=== PATIENT | female | born 1940 | race Caucasian/White ===

== ENCOUNTER 2019-02-04 21:00 | Emergency (ER) | payer MEDICARE ==
[~2019-02-04] VITALS: Ht 167.6 cm; Wt 79.8 kg
--- OUTSIDE RECORDS SUMMARY | 2019-02-04 21:04 | XMS REPORT | Clinical Summary ---
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 Active traZODone (DESYREL) 50 MG Take 50 mg by 0 tablet mouth nightly. Active naproxen Take 220 mg 0 (ALEVE,ANAPROX,MIDOL) 220 by mouth 2 MG tablet (two) times daily with breakfast and dinner. Active Problems Problem Noted Date SVT (supraventricular tachycardia) 07/20/2016 Social History Date Tobacco Use Types Packs/Day Years Used Never Smoker Alcohol Use Drinks/Week oz/Week Comments Yes 3-4 Glasses 1.8 - 2.4 PER DAY of wine Sex Assigned at Date Recorded Not on file Industry Job Start Date Occupation Not on file Not on file Not on file Travel End Travel History Travel Start No recent travel history available. Last Filed Vital Signs Not on file Plan of Treatment Not on file Results Not on fileafter 02/03/2018 Insurance Payer Benefit Subscriber ID Type Phone Address Plan / Group [facility] xxxxxxxxxxx MEDICARE ADV Advance Directives For more information, please contact: [facility] [address] [place] [address] Date Inactivated Comments Code Status Date Activated 07/23/2016 6:42 PM Full Code 07/20/2016 11:33 PM This code status was determined by: Patient
--- OUTSIDE RECORDS SUMMARY | 2019-02-04 21:04 | XMS REPORT ---
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 Allergies, Adverse Reactions, Alerts This patient has no known allergies or adverse reactions. Medications This patient has no known medications. Results Test Description Test Time Test Comments Text Results Atomic Results Result Comments HEPATITIS C PCR, QUANTITATIVE 2016-07-23 20:44:00 HCV RESULT COMPONENT (BEAKER) (test pgjb=5194) HCV RNA not detected HCV RNA not detected This test uses a Real-Time Polymerase Chain Reaction (RT-PCR) methodology and wa s performed using NEENA Ampliprep/NEENA TaqMan HCV test kit version 2.0 ([employer]).Reportable range for this assay is 15 - 100,000,000 IU per mL (1.18 - 8.00 Log IU/mL).This test uses a Real-Time Polymerase Chain Reac tion (RT-PCR) methodology and was performed using NEENA Ampliprep/NEENA TaqMan HCV test kit version 2.0 ([employer]).Reportable range for t his assay is 15 - 100,000,000 IU per mL (1.18 - 8.00 Log IU/mL).HEMOGLOBIN A1C 2016-07-23 07:52:00* Test Item Value Reference Range Comments HEMOGLOBIN A1C (BEAKER) (test gncf=896) 5.2 % 4.3-6.1 BASIC METABOLIC [id number] 05:56:00* Test Item Value Reference Range Comments SODIUM (BEAKER) (test ugpw=695) 139 meq/L 136-145 POTASSIUM (BEAKER) (test yzhq=101) 3.6 meq/L 3.5-5.1 CHLORIDE (BEAKER) (test hcor=142) 108 meq/L 98-107 CO2 (BEAKER) (test vsrx=122) 24 meq/L 22-29 BLOOD UREA NITROGEN (BEAKER) (test cvwm=198) 12 mg/dL 7-21 CREATININE (BEAKER) (test lusf=896) 0.78 mg/dL 0.57-1.25 GLUCOSE RANDOM (BEAKER) (test ycpe=129) 83 mg/dL 70-105 CALCIUM (BEAKER) (test azur=434) 9.4 mg/dL 8.4-10.2 EGFR (BEAKER) (test udhb=5789) mL/min/1.73 sq m INSUFFICIENT CLINICAL DATA TO CALCULATE ESTIMATED GFR. CBC W/PLT COUNT & AUTO [id number] 05:25:00* Test Item Value Reference Range Comments WHITE BLOOD CELL COUNT (BEAKER) (test gavk=233) 3.7 K/ L 4.0-10.0 RED BLOOD CELL COUNT (BEAKER) (test fnfh=248) 3.92 M/ L 4.00-5.00 HEMOGLOBIN (BEAKER) (test ztfg=009) 13.1 GM/DL 12.0-15.0 HEMATOCRIT (BEAKER) (test qtxu=554) 38.2 % 36.0-45.0 MEAN CORPUSCULAR VOLUME (BEAKER) (test tpdy=742) 97.6 fL 82.0-99.0 MEAN CORPUSCULAR HEMOGLOBIN (BEAKER) (test qdot=337) 33.5 pg 27.0-33.0 MEAN CORPUSCULAR HEMOGLOBIN CONC (BEAKER) (test tmqb=121) 34.3 GM/DL 32.0-36.0 RED CELL DISTRIBUTION WIDTH (BEAKER) (test wgik=258) 12.5 % 10.3-14.2 PLATELET COUNT (BEAKER) (test kigq=211) 107 K/CU MM 150-430 MEAN PLATELET VOLUME (BEAKER) (test gpmx=849) 7.9 fL 6.5-10.5 NUCLEATED RED BLOOD CELLS (BEAKER) (test bsih=820) 0 /100 WBC 0-0 NEUTROPHILS RELATIVE PERCENT (BEAKER) (test gucp=341) 54 % LYMPHOCYTES RELATIVE PERCENT (BEAKER) (test vugh=751) 29 % MONOCYTES RELATIVE PERCENT (BEAKER) (test akpg=461) 10 % EOSINOPHILS RELATIVE PERCENT (BEAKER) (test ujdu=441) 5 % BASOPHILS RELATIVE PERCENT (BEAKER) (test vsya=319) 2 % NEUTROPHILS ABSOLUTE COUNT (BEAKER) (test giih=696) 1.97 K/ L 1.80-8.00 LYMPHOCYTES ABSOLUTE COUNT (BEAKER) (test lsvz=115) 1.08 K/ L 1.48-4.50 MONOCYTES ABSOLUTE COUNT (BEAKER) (test ygqz=790) 0.35 K/ L 0.00-1.30 EOSINOPHILS ABSOLUTE COUNT (BEAKER) (test qefg=918) 0.18 K/ L 0.00-0.50 BASOPHILS ABSOLUTE COUNT (BEAKER) (test cwci=310) 0.09 K/ L 0.00-0.20 0.00HEMOGLOBIN [id number] 11:39:00* Test Item Value Reference Range Comments HEMOGLOBIN A1C (BEAKER) (test nvin=988) 5.5 % 4.3-6.1 CBC W/PLT COUNT & AUTO [id number] 10:52:00* Test Item Value Reference Range Comments WHITE BLOOD CELL COUNT (BEAKER) (test jtem=362) 3.8 K/ L 4.0-10.0 RED BLOOD CELL COUNT (BEAKER) (test bsyp=804) 3.64 M/ L 4.00-5.00 HEMOGLOBIN (BEAKER) (test uppl=142) 12.3 GM/DL 12.0-15.0 HEMATOCRIT (BEAKER) (test yssl=689) 36.1 % 36.0-45.0 MEAN CORPUSCULAR VOLUME (BEAKER) (test rtjx=536) 99.2 fL 82.0-99.0 MEAN CORPUSCULAR HEMOGLOBIN (BEAKER) (test hhau=713) 33.9 pg 27.0-33.0 MEAN CORPUSCULAR HEMOGLOBIN CONC (BEAKER) (test cjiq=833) 34.2 GM/DL 32.0-36.0 RED CELL DISTRIBUTION WIDTH (BEAKER) (test orry=620) 12.9 % 10.3-14.2 PLATELET COUNT (BEAKER) (test mleh=425) 127 K/CU MM 150-430 MEAN PLATELET VOLUME (BEAKER) (test sfep=331) 7.9 fL 6.5-10.5 NUCLEATED RED BLOOD CELLS (BEAKER) (test oukm=940) 0 /100 WBC 0-0 NEUTROPHILS RELATIVE PERCENT (BEAKER) (test nlyl=070) 55 % LYMPHOCYTES RELATIVE PERCENT (BEAKER) (test idht=269) 30 % MONOCYTES RELATIVE PERCENT (BEAKER) (test effh=925) 8 % EOSINOPHILS RELATIVE PERCENT (BEAKER) (test thjj=088) 7 % BASOPHILS RELATIVE PERCENT (BEAKER) (test hiaq=098) 0 % NEUTROPHILS ABSOLUTE COUNT (BEAKER) (test ippk=394) 2.07 K/ L 1.80-8.00 LYMPHOCYTES ABSOLUTE COUNT (BEAKER) (test nzil=838) 1.15 K/ L 1.48-4.50 MONOCYTES ABSOLUTE COUNT (BEAKER) (test qvxx=939) 0.29 K/ L 0.00-1.30 EOSINOPHILS ABSOLUTE COUNT (BEAKER) (test evjb=568) 0.26 K/ L 0.00-0.50 BASOPHILS ABSOLUTE COUNT (BEAKER) (test gbrg=798) 0.02 K/ L 0.00-0.20 0.001.100.000.000.000.000.000.000.500.000.000.000.000.00(MANUAL DIFFERENTIAL) 2016-07-22 10:52:00* Test Item Value Reference Range Comments TOTAL COUNTED (BEAKER) (test xcoo=6947) WBC MORPHOLOGY (BEAKER) (test nzji=851) Normal PLT MORPHOLOGY (BEAKER) (test cris=472) Normal RBC MORPHOLOGY (BEAKER) (test cmas=690) Normal BASIC METABOLIC [id number] 05:50:00* Test Item Value Reference Range Comments SODIUM (BEAKER) (test mpnq=923) 139 meq/L 136-145 POTASSIUM (BEAKER) (test cwcw=195) 4.2 meq/L 3.5-5.1 Specimen slightly hemolyzed CHLORIDE (BEAKER) (test ubyu=780) 110 meq/L 98-107 CO2 (BEAKER) (test ersm=672) 19 meq/L 22-29 BLOOD UREA NITROGEN (BEAKER) (test ctif=496) 14 mg/dL 7-21 CREATININE (BEAKER) (test ikdu=294) 0.79 mg/dL 0.57-1.25 Specimen slightly hemolyzed GLUCOSE RANDOM (BEAKER) (test itao=377) 90 mg/dL 70-105 CALCIUM (BEAKER) (test wscj=962) 9.1 mg/dL 8.4-10.2 EGFR (BEAKER) (test oeek=7456) mL/min/1.73 sq m INSUFFICIENT CLINICAL DATA TO CALCULATE ESTIMATED GFR. TSH/FREE T4 IF [id number] 19:08:00* Test Item Value Reference Range Comments THYROID STIMULATING HORMONE (BEAKER) (test bvdj=383) 2.55 uIU/mL 0.35-4.94 CBC W/PLT COUNT & AUTO [id number] 14:09:00* Test Item Value Reference Range Comments WHITE BLOOD CELL COUNT (BEAKER) (test rfyt=846) 4.7 K/ L 4.0-10.0 RED BLOOD CELL COUNT (BEAKER) (test xvii=066) 3.50 M/ L 4.00-5.00 HEMOGLOBIN (BEAKER) (test mkpp=398) 12.0 GM/DL 12.0-15.0 HEMATOCRIT (BEAKER) (test jifu=172) 34.3 % 36.0-45.0 MEAN CORPUSCULAR VOLUME (BEAKER) (test ucrn=255) 98.3 fL 82.0-99.0 MEAN CORPUSCULAR HEMOGLOBIN (BEAKER) (test vupg=874) 34.2 pg 27.0-33.0 MEAN CORPUSCULAR HEMOGLOBIN CONC (BEAKER) (test mzeb=295) 34.8 GM/DL 32.0-36.0 RED CELL DISTRIBUTION WIDTH (BEAKER) (test sphc=487) 12.9 % 10.3-14.2 PLATELET COUNT (BEAKER) (test emgp=759) 111 K/CU MM 150-430 MEAN PLATELET VOLUME (BEAKER) (test xibe=067) 7.5 fL 6.5-10.5 NUCLEATED RED BLOOD CELLS (BEAKER) (test jkhe=921) 0 /100 WBC 0-0 NEUTROPHILS RELATIVE PERCENT (BEAKER) (test azud=237) 56 % LYMPHOCYTES RELATIVE PERCENT (BEAKER) (test dvim=649) 33 % MONOCYTES RELATIVE PERCENT (BEAKER) (test jjqi=162) 6 % EOSINOPHILS RELATIVE PERCENT (BEAKER) (test fhxf=311) 2 % BASOPHILS RELATIVE PERCENT (BEAKER) (test lwwg=889) 3 % NEUTROPHILS ABSOLUTE COUNT (BEAKER) (test fsnc=316) 2.65 K/ L 1.80-8.00 LYMPHOCYTES ABSOLUTE COUNT (BEAKER) (test rusj=086) 1.55 K/ L 1.48-4.50 MONOCYTES ABSOLUTE COUNT (BEAKER) (test katg=853) 0.26 K/ L 0.00-1.30 EOSINOPHILS ABSOLUTE COUNT (BEAKER) (test yglu=105) 0.11 K/ L 0.00-0.50 BASOPHILS ABSOLUTE COUNT (BEAKER) (test gqei=929) 0.15 K/ L 0.00-0.20 0.00(MANUAL DIFFERENTIAL)2016-07-21 14:09:00* Test Item Value Reference Range Comments TOTAL COUNTED (BEAKER) (test afcq=4532) WBC MORPHOLOGY (BEAKER) (test ijfa=839) Normal PLT MORPHOLOGY (BEAKER) (test zsmp=098) Normal RBC MORPHOLOGY (BEAKER) (test wazc=963) Normal HEMOGLOBIN [id number] 09:25:00* Test Item Value Reference Range Comments HEMOGLOBIN A1C (BEAKER) (test hqal=582) 5.3 % 4.3-6.1 TROPONIN [id number] 07:00:00* Test Item Value Reference Range Comments TROPONIN I (BEAKER) (test jisq=914) 0.30 ng/mL 0.00-0.03 Effective 04/06/2014: Reference Range ChangeNew: 0.00-0.03 Previous 0.00-0.15T roponin I (TnI) levels must be interpreted in the context of the presenting symp toms and the clinical findings. Elevated TnI levels indicate myocardial damage, but are not specific for ischemic heart disease. Elevated TnI levels are seen in patients with other cardiac conditions (including myocarditis and congestive he art failure), and slight TnI elevations occur in patients with other conditions, including sepsis, renal failure, acidosis, acute neurological disease, and pers istent tachyarrhythmia.HEPATITIS C [id number] 06:56:00* Test Item Value Reference Range Comments HEPATITIS C ANTIBODY (BEAKER) (test gawk=754) Reactive Nonreactive PT/[id number] 06:15:00* Test Item Value Reference Range Comments PROTIME (BEAKER) (test kwpu=160) 14.8 seconds 11.7-14.7 INR (BEAKER) (test zhtx=935) 1.2 <=5.9 PARTIAL THROMBOPLASTIN TIME (BEAKER) (test pgwf=042) 39.1 seconds 22.5-36.0 RECOMMENDED COUMADIN/WARFARIN INR THERAPY RANGESSTANDARD DOSE: 2.0 - 3.0 Inclu brien: PROPHYLAXIS for venous thrombosis, systemic embolization; TREATMENT for syed ous thrombosis and/or pulmonary embolus.HIGH RISK: Target INR is 2.5-3.5 for pat ients with mechanical heart valves.BASIC METABOLIC [id number] 06:01:00* Test Item Value Reference Range Comments SODIUM (BEAKER) (test deum=364) 138 meq/L 136-145 POTASSIUM (BEAKER) (test qwnv=353) 3.9 meq/L 3.5-5.1 CHLORIDE (BEAKER) (test nmku=398) 108 meq/L 98-107 CO2 (BEAKER) (test afjj=140) 22 meq/L 22-29 BLOOD UREA NITROGEN (BEAKER) (test dghn=297) 15 mg/dL 7-21 CREATININE (BEAKER) (test mrpu=570) 0.79 mg/dL 0.57-1.25 GLUCOSE RANDOM (BEAKER) (test yqgo=787) 95 mg/dL 70-105 CALCIUM (BEAKER) (test hdlp=238) 9.3 mg/dL 8.4-10.2 EGFR (BEAKER) (test ssbw=7028) mL/min/1.73 sq m INSUFFICIENT CLINICAL DATA TO CALCULATE ESTIMATED GFR. LIPID [id number] 05:58:00* Test Item Value Reference Range Comments TRIGLYCERIDES (BEAKER) (test ymtf=817) 87 mg/dL CHOLESTEROL (BEAKER) (test pfax=671) 178 mg/dL HDL CHOLESTEROL (BEAKER) (test symh=612) 50 mg/dL LDL CHOLESTEROL CALCULATED (BEAKER) (test fajr=395) 111 mg/dL Triglyceride Reference Range: Low Risk <150 Borderline 150-199 High Risk 200-499 Very High Risk >=500Cholesterol Reference Range: Low Risk <200 Borderline 200-239 High Risk >240HDL Cholesterol Reference Range: Low Risk >=60 High Risk <40LDL Cholesterol Reference Range: Optimal <100 Near Optimal 100-129 Borderline 130-159 High 160-189 Very High >=190 TROPONIN [id number] 01:12:00* Test Item Value Reference Range Comments TROPONIN I (BEAKER) (test burn=584) 0.26 ng/mL 0.00-0.03 Effective 04/06/2014: Reference Range ChangeNew: 0.00-0.03 Previous 0.00-0.15T roponin I (TnI) levels must be interpreted in the context of the presenting symp toms and the clinical findings. Elevated TnI levels indicate myocardial damage, but are not specific for ischemic heart disease. Elevated TnI levels are seen in patients with other cardiac conditions (including myocarditis and congestive he art failure), and slight TnI elevations occur in patients with other conditions, including sepsis, renal failure, acidosis, acute neurological disease, and pers istent tachyarrhythmia.[id number] 00:34:00* Test Item Value Reference Range Comments PHOSPHORUS (BEAKER) (test pwge=113) 3.4 mg/dL 2.3-4.7 [id number] 00:34:00* Test Item Value Reference Range Comments MAGNESIUM (BEAKER) (test zhan=054) 1.8 mg/dL 1.6-2.6
[2019-02-04] MEDS ORDERED: SODIUM CHLORIDE 0.9% 1000ML 1,000 ML IV STA (21:32)
[2019-02-04] MEDS ORDERED: DIATRIZOATE MEGL/DIATRIZOA SOD 30 ML BTL PO ONE (21:38)
[2019-02-04 22:29] LABS: BASOPHILS % 0.3 % (0.0-1.0); EOSINOPHILS # (AUTO) 0.1 (0.0-0.4); EOSINOPHILS % 0.5 % (0.0-6.0); HEMATOCRIT 39.8 % (34.2-44.1); HEMOGLOBIN 13.4 g/dL (12.0-16.0); LYMPHOCYTES # (AUTO) 0.9 (1.0-3.2); LYMPHOCYTES % 6.2 % (18.0-39.1); MEAN CORPUSCULAR HEMOGLOBIN 32.4 pg (28-32); MEAN CORPUSCULAR HGB CONC 33.7 g/dL (31-35); MEAN CORPUSCULAR VOLUME 96.4 fL (81-99); MONOCYTES # (AUTO) 0.8 (0.2-0.8); MONOCYTES % 5.3 % (4.4-11.3); NEUTROPHILS # (AUTO) 12.5 (2.1-6.9); NEUTROPHILS % 86.7 % (38.7-80.0); PLATELET COUNT 113 x10e3/uL (140-360); RED BLOOD COUNT 4.13 x10e6/uL (3.6-5.1); RED CELL DISTRIBUTION WIDTH 13.1 % (11.7-14.4)
[2019-02-04 22:36] LABS: BILIRUBIN,URINE NEGATIVE (NEGATIVE); CLARITY,URINE SL CLOUDY (CLEAR); COLOR,URINE YELLOW (YELLOW); KETONES,URINE TRACE (NEGATIVE); LEUKOCYTE ESTERASE ,URINE NEGATIVE (NEGATIVE); NITRITE,URINE NEGATIVE (NEGATIVE); PROTEIN,URINE DIPSTICK TRACE (NEGATIVE); URINE UROBILINOGEN 0.2 mg/dL (0.2 - 1)
[2019-02-04 22:51] LABS: ALBUMIN 3.8 g/dL (3.5-5.0); ALBUMIN/GLOBULIN RATIO 0.7 (0.8-2.0); ANION GAP 13.8 mmol/L (8-16); CALCIUM 10.1 mg/dL (8.4-10.2); CREATININE, SERUM 1.03 mg/dL (0.57-1.11); POTASSIUM 3.8 mmol/L (3.5-5.1)
[2019-02-04 22:54] LABS: BACTERIA,URINE MODERATE /HPF; EPITHELIAL CELLS,URINE MODERATE /LPF
--- NOTE | 2019-02-04 23:22 | NUR ---
REPORT GIVEN TO ROGELIO MURILLO
--- NOTE | 2019-02-05 00:43 | Diagnostic Imaging Report ---
EXAMINATION: CT of the abdomen and pelvis with contrast. TECHNIQUE: Spiral CT images of the abdomen and pelvis were performed from the lung bases to the lesser trochanters after the intravenous administration of 100 cc of Isovue 370 and the oral administration of dilute Gastrografin. Coronal and sagittal reformatted images were obtained. COMPARISON: None. CLINICAL HISTORY:Abdominal pain, possible constipation DISCUSSION: ABDOMEN/PELVIS: LOWER THORAX:Linear subsegmental atelectasis versus scarring in the right lower lobe. Partially visualized wedge-shaped focal consolidation in the posteromedial left lower lobe (series 2, image 1). Small to moderate hiatal hernia. HEPATOBILIARY: No focal hepatic lesions. Decreased attenuation of the hepatic parenchyma compared to the spleen, consistent with steatosis. No intra or extrahepatic biliary ductal dilation. GALLBLADDER: No radio-opaque stones or sludge. No wall thickening. SPLEEN: Mild splenomegaly, measuring 13.6 cm in craniocaudal diameter. 4 hypodense lesions are noted in the spleen: * 0.9 cm hypodense lesion in the superior aspect (series 2, image 7). * 2.3 cm hypodense lesion in the anterior mid aspect, which does not measure simple fluid (series 2, image 15). * 2.6 cm and 0.9 cm more solid appearing lesions in the mid medial aspect (series 2, images 15 and 17). PANCREAS: No focal masses or ductal dilatation. ADRENALS: No adrenal nodules. KIDNEYS/URETERS: No hydronephrosis, stones, or solid enhancing lesions. 2.9 cm fluid density partially exophytic simple cyst in the posterior right interpolar region (series 2, image 36). 3.5 x 2.9 cm fluid density peripherally calcified cystic lesion in the right inferior pole (series 2, image 40). 1.5 cm fluid density simple cyst in the left interpolar region (series 2, image 27). PELVIC ORGANS/BLADDER: Bladder is unremarkable. No adnexal masses. PERITONEUM/RETROPERITONEUM: No free air or fluid. LYMPH NODES: No intra-abdominal, retroperitoneal, pelvic or inguinal lymphadenopathy. VESSELS: The celiac trunk,superior and inferior mesenteric and bilateral renal arteries are patent The portal, superior mesenteric and splenic veins are patent. Moderate atherosclerotic calcification of the abdominal aorta. GI TRACT: No bowel dilation or evidence of obstruction. Very mild amount of retained stool. No pericolonic inflammatory changes. Marked descending and sigmoid colon diverticulosis, without diverticulitis. BONES AND SOFT TISSUE: No aggressive lytic lesions. Small fat-containing umbilical hernia. No soft tissue abnormalities. IMPRESSION: 1. No acute abdominopelvic abnormalities. No bowel dilation or evidence of obstruction. Very mild amount of retained stool. No CT evidence of impaction. 2. Partially visualized wedge-shaped focal consolidation in the posteromedial left lower lobe. This may represent a focal area of scarring/atelectasis, however, infection/pneumonia could be considered in the upper clinical setting. A primary bronchogenic neoplasm is also a consideration, particularly the patient is high risk. Recommend contrast-enhanced chest CT for further evaluation on a nonemergent basis, since the patient already received a dose of contrast today. 3. Mild splenomegaly, with indeterminate hypodense lesions in the spleen, 2 of which have a more solid appearance. This may be further evaluated with contrast-enhanced abdominal MRI on a nonemergent basis. 4. Small to moderate hiatal hernia. 5. 3.5 cm mildly complex peripherally calcified nonenhancing cyst in the right renal inferior pole. This can also be assessed on above-mentioned MRI Signed by: Dr. Sadiq Luevano M.D. on 02/05/2019 12:39 AM
[2019-02-05] MEDS ORDERED: IOPAMIDOL 370 MG/ML 200 ML INFUS..BTL INJ ONE (02:08)
[2019-02-05] MEDS ORDERED: SODIUM CHLORIDE 0.9% 50ML 50 ML ONE (02:08)
== END 2019-02-05 01:00 | disposition home or self-care (01) ==
LOC: ER 21:00
DX: R10.9 Unspecified abdominal pain (principal); R11.2 Nausea with vomiting, unspecified; K59.00 Constipation, unspecified; N30.90 Cystitis, unspecified without hematuria; I10 Essential (primary) hypertension; K21.9 Gastro-esophageal reflux disease without esophagitis; F32.9 Major depressive disorder, single episode, unspecified
CPT/HCPCS: 36415; 74177; 80053; 81001; 83690; 85025; 99284; J7030; Q9967